=== PATIENT | female | born 1985 ===

== ENCOUNTER 2016-09-07 21:59 | Observation (INO) ==
[2016-09-07 23:09] LABS: Bilirubin,Urine Negative (Negative); Blood,Urine Negative (Negative); Clarity,Urine Cloudy (Clear); Color,Urine Yellow (Yellow); Glucose,Urine (UA) Normal (Normal); Ketones,Urine Negative (Negative); Leukocyte Esterase,Urine Negative (Negative); Nitrite,Urine Negative (Negative); Protein,Urine Negative (Neg-Trace); Specific Gravity,Urine 1.012 (1.010-1.025); Urobilinogen,Urine Normal (Normal)
[2016-09-07 23:11] LABS: Bacteria,Urine Few per hpf (None-Few); Hyaline Casts,Urine None Seen per lpf (None-Few); RBC,Urine 0-3 per hpf (0-3); Squamous Epithelial Cell,Urine Many per lpf (None-Few)
[2016-09-07 23:14] LABS: Amphetamine Screen,Urine Negative ng/mL (Cutoff=1000); Benzodiazepines Screen,Urine Negative ng/mL (Cutoff=200); Cannabinoid Screen,Urine Negative ng/mL (Cutoff = 50); Cocaine Screen,Urine Negative ng/mL (Cutoff= 300); Opiate Screen,Urine Negative ng/mL (Cutoff=300); Phencyclidine Screen,Urine Negative ng/mL (Cutoff=25)
[2016-09-07 23:31] LABS: Barbiturate Screen,Urine Negative ng/mL (Cutoff=200)
--- NOTE | 2016-09-09 11:07 | OB/GYN Progress Note ---
Date of Encounter: 09/07/16 Time of Encounter: 23:00 - Assessment and Plan (1) 39 weeks gestation of Status: Acute (2) False labor after 37 completed weeks of gestation Status: Acute Patient was seen and evaluated by RN. She was not dilating or making cervical change. She was discharged home to followup with her primary OB. Objective - Labs Labs: Abnormal lab results Urine Clarity Cloudy (Clear) A 09/07/16 23:00 Urine Microscopic WBC 3-5 per hpf (0-3) H 09/07/16 23:00 Ur Squamous Epith Cells Many per lpf (None-Few) H 09/07/16 23:00
== END 2016-09-08 01:00 | disposition home or self-care (01) ==
LOC: 1NENULAB → MERGE 21:59
PROVIDERS: ADMIT Obstetrics & Gynecology; ATTEND Obstetrics & Gynecology